=== PATIENT | male | born 1995 | race Caucasian/White ===

== ENCOUNTER 2024-09-30 11:11 | Emergency (ER) | payer OTHER ==
[~2024-09-30] VITALS: Ht 172.7 cm; Wt 59.2 kg
[2024-09-30] MEDS ORDERED: SULFACETAMIDE S15 ML OPTH ×2 (11:56→11:57)
[2024-09-30 12:04] VITALS: BP 141/83
== END 2024-09-30 12:06 | disposition home or self-care (01) ==
LOC: ED 11:11
DX: H10.9 Unspecified conjunctivitis (principal)
CPT/HCPCS: 99282